=== PATIENT | male | born 1995 | race Caucasian/White ===

== ENCOUNTER 2017-09-09 06:20 | Emergency (ER) | payer MEDICAID ==
[~2017-09-09] VITALS: Ht 162.6 cm; Wt 70.0 kg
[~2017-09-09 06:20] MED LIST: OXYC-302 PO
[2017-09-09 06:25] VITALS: BP 157/99
== END 2017-09-09 08:47 | disposition home or self-care (01) ==
LOC: ED 07:45
DX: N41.0 Acute prostatitis (principal)
CPT/HCPCS: 76870; 81001; 87086; 87491; 87591; 93975; 99285

== ENCOUNTER 2017-10-22 07:08 | Emergency (ER) | payer MEDICAID ==
[~2017-10-22] VITALS: Ht 162.6 cm; Wt 61.0 kg
[2017-10-22] MEDS ORDERED: OXYcodone/APAP 5/325MG TABLET ONE (07:59)
[2017-10-22] MEDS ORDERED: KETOROLAC 30 MG/1 ML ONE (08:00)
[2017-10-22] MEDS ORDERED: KETOROLAC 30 MG/1 ML IM ONE (08:00)
[2017-10-22] MEDS ORDERED: OXYcodone/APAP 5/325MG TABLET PO ONE (08:00)
[2017-10-22 08:14] LABS: HEMATOCRIT 41.5 % (39.2-51.8); HEMOGLOBIN 14.2 g/dL (13.7-18.0); WHITE BLOOD COUNT 6.2 x10^3/uL (3.4-10)
[2017-10-22 08:21] LABS: BLOOD UREA NITROGEN 19 mg/dL (7-18)
[2017-10-22 10:23] VITALS: BP 131/84
== END 2017-10-22 11:53 | disposition left against medical advice (07) ==
LOC: ED 10:20
DX: N50.811 Right testicular pain (principal); I86.1 Scrotal varices
CPT/HCPCS: 36415; 76770; 76870; 80048; 81003; 82040; 85025; 96372; 99285; J1885